=== PATIENT | female | born 1950 | race Caucasian/White ===

== ENCOUNTER → 2017-06-12 | Outpatient (CLI) | payer MEDICARE, OTHER ==
[~2017-06-12] MED LIST: ALBU8.5H IH; ASPI81TA94 PO; AZEL205.2 NS; BUDE10.25 IH; CARV6.2574 PO; CHOL100052 PO; CLOP75TA43 PO; CYAN1TAB68 PO; CYC10 PO; CYCL-277 PO; DUL20 PO; FLUT10SP; HYDR25CA83 PO; LANS30CA70 PO; LEVO-3 PO; LEVOTHYROXINE; LOR5/325 PO; LORA-788 PO; LOSA50TA72 PO; METH500T PO; METHO500 PO; MONT10TA PO; MULT-1335 PO; NAP500 PO; NAPR-723 PO; NIT3 SL; OXYC-763 PO; PANT40TA65 PO; SERT-1 PO; THYROID; ZOLP-350 PO
== END ==
LOC: SPU 08:16
PROVIDERS: ATTEND Nurse Practitioner Family
DX: E03.9 Hypothyroidism, unspecified (principal); E78.5 Hyperlipidemia, unspecified; Z79.899 Other long term (current) drug therapy
CPT/HCPCS: 82465; 83718; 84478

== ENCOUNTER 2017-06-14 08:51 | Outpatient (RCR) | payer MEDICARE, OTHER ==
[2017-06-12 08:16] VITALS: BP 169/98
[2017-06-12 08:52] LABS: PLATELET COUNT, AUTOMATED 299 K/uL (150-450)
[2017-06-14 08:59] VITALS: BP 177/96
--- NOTE | 2017-06-14 09:42 | ONC Progress Note - NP.Halsey ---
Patient History Date of Service Jun 14, 2017 Reason For Visit/HPI Patient is seen in the clinic today for follow up of her iron deficiency anemia. Patient has a history of gastric bypass surgery, revision of bypass, and a mass removed to decrease her stomach even further. Patient is seen every 6 months to monitor her symptoms and ferritin level. Today she reports that she has increased fatigue which she experiences almost daily around 1pm. She tries to remain active but often has no further energy to complete her day. Labs reviewed today with patient. Review of normal screening recommendations completed today. Patient reports that she does a self breast exam occasionally but she has not completed a mammogram. She is encouraged to discuss this with her primary provider. She reports a colonoscopy which was normal. Problem List (1) Iron (Fe) deficiency anemia (2) History of gastric bypass (3) Hx of cholecystectomy (4) History of shoulder surgery (5) (6) Adopted child Oncology History 1. 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 The patient did not respond to oral iron supplementation. The patient received the Ferrlecit for eight weekly doses and ferritin increased it from 7 to 32. She was then seen in follow up and her ferritin was decreased to 17. She received Injectafer 750mg IV for two doses a week apart in October of 2014. Patient was not seen until she had insurance in 2016 2. Hypothyroidism on thyroid supplement. 3. Coronary artery disease, status post stent placement. Psychosocial History Social History The patient is . She has 2 sons, one is disabled and the other is adopted and currently in fpc for drug use. 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 Denies any abuse of alcohol, tobacco or drugs. Smoking History: No Smoking Status: Never Smoker Exposure to Second Hand Smoke?: No Medications and Allergies Reported Medications Cholecalciferol (Vitamin D3) (VITAMIN D) 1,000 Unit Tablet, 1000 UNIT PO QDAY 03/27/14 Cyanocobalamin/Folic Acid (VITAMIN U05-KUPKO ACID TABLET) 1 Each Tablet, 1 EACH PO QDAY 03/27/14 Multivitamin With Minerals (MULTIPLE VITAMIN) 1 Each Tablet, 1 EACH PO QDAY 03/27/14 Nitroglycerin (NITROSTAT) 0.3 Mg Subl, 0.3 MG SL Q5MIN 03/27/14 Fluticasone Furoate (VERAMYST) 10 Gm [place], 1 SPRAY NA QDAY, SPRAY 03/27/14 Azelastine Hcl (ASTEPRO) 205.5 Mcg/0.137 Ml [place].pump, 205.5 MCG NS BID 03/27/14 Sertraline Hcl (ZOLOFT) 50 Mg Tablet, 2 TAB PO QDAY TAKE TWO TABLETS BY MOUTH EVERY DAY 03/25/14 Aspirin (ASPIRIN) 81 Mg Tab.chew, 81 MG PO QDAY, TAB.CHEW TAKE 1 TABLET BY MOUTH EVERY DAY 03/25/14 Levothyroxine Sodium (LEVOTHYROXINE SODIUM) 100 Mcg Tablet, 100 MCG PO QDAY 03/25/14 [Levothyroxine] No Conflict Check 12/07/12 Allergies: Coded Allergies: grapefruit (Verified Allergy, Mild, 12/07/12) codeine (Verified Allergy, Unknown, 03/25/14) Uncoded Allergies: JACQUELINE TREES (Allergy, Mild, 05/08/07) Review of System/Physical Exam Review of Systems All Systems Reviewed/Normal: Yes, Except as Noted Hematologic: Positive for Fatigue Physical Exam Vital Signs Temperature: 97.3 Pulse: 103 BP Systolic: 177 BP Diastolic: 96 Respiratory Rate: 16 O2 SAT: 94 O2 Delivery: Room Air Height (inches) 4.50 Weight lb: 274 Weight oz: 8.0 Weight Kg ([place]): [phone] Pain: 4 ECOG Score: 0 General: Stable, Well Developed, Well Nourished, Not In Acute Distress Heart: Regular Rate, Regular Rhythm, No Gallops, No Murmurs Psychiatric: Mood appears normal, Affect appears normal Skin: No Skin Rashes, No Bruising, No Purpura Other The rest of the exam was deferred to discuss lab results and review screening indications. Diagnostic Studies Diagnostic Studies Laboratory Laboratory Tests 06/12/17 08:16 Laboratory Tests 06/12/17 08:16: White Blood Count 9.1, Red Blood Count 5.62, Hemoglobin 15.4, Hematocrit 46.2, Mean Corpuscular Volume 82.2, Mean Corpuscular Hemoglobin 27.5, Mean Corpuscular Hemoglobin Concent 33.4, Red Cell Distribution Width 14.1, Platelet Count 299, Mean Platelet Volume 8.0, Neutrophils (%) (Auto) 55.6, Lymphocytes (% ) (Auto) 35.6, Monocytes (%) (Auto) 5.1, Eosinophils (%) (Auto) 2.6, Basophils ( %) (Auto) 1.1, Nucleated RBC Relative Count (auto) 0.1, Neutrophils # (Auto) 5.1 , Lymphocytes # (Auto) 3.2, Monocytes # (Auto) 0.5, Eosinophils # (Auto) 0.2, Basophils # (Auto) 0.1, Nucleated RBC Absolute Count (auto) 0.01, Sodium Level 138, Potassium Level 4.3, Chloride Level 105, Carbon Dioxide Level 21, Blood Urea Nitrogen 11, Creatinine 0.80, Glomerular Filtration Rate Calc > 60.0, Random Glucose 106, Calcium Level 9.3, Iron Level 72, Total Iron Binding Capacity 213, Percent Iron Saturation 33.8, Ferritin 17, Total Bilirubin 0.5, Aspartate Amino Transf (AST/SGOT) 23, Alanine Aminotransferase (ALT/SGPT) 29, Alkaline Phosphatase 107, Total Protein 7.1, Albumin 4.0, Thyroid Stimulating Hormone (TSH) 0.71 Assessment and Plan Assessment & Plan 1. 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 The patient did not respond to oral iron supplementation. The patient received the Ferrlecit for eight weekly doses and ferritin increased it from 7 to 32. Her ferritin then decreased to 17 and she received two infusions of Injectafer 750 mg intravenously for two doses a week apart in October of 2014. She was to follow in 6 months with repeat labs but had no insurance so was not seen until 2016 with a ferritin of 20. She had fatigue at that time but felt is was not interfering with her day. Today ferritin is 17 and she feels more fatigued. I will transfuse with injectafer 750,g IV for two doses a week apart and see her in 6 months with repeat CBC, CMP, iron studies and ferritin. She agrees with this plan of care. In addition she will discuss completing a mammogram with her primary provider Ivelisse Miles NP. 2. Hypothyroidism on thyroid supplement. 3. Coronary artery disease, status post stent placement. I personally spent a total of 20 minutes. Of that 20 minutes was counseling/ coordination of patient's care. See my note above for details. ROSE CASANOVA ECHOCARDIOGRAPH TECH-BC, ONC Jun 14, 2017 09:42
== END 2017-07-26 09:00 | disposition home or self-care (01) ==
LOC: ONC 08:51
PROVIDERS: ATTEND Nurse Practitioner Family
DX: D50.9 Iron deficiency anemia, unspecified (principal); E03.9 Hypothyroidism, unspecified; I25.10 Atherosclerotic heart disease of native coronary artery without angina pectoris; R53.83 Other fatigue; Z79.899 Other long term (current) drug therapy; Z79.82 Long term (current) use of aspirin
CPT/HCPCS: 36415; 82728; 83540; 83550; 84443; 85025; G0463; 82040; 82247; 82310; 82374; 82435; 82465; 82565; 82947; 83718; 84075; 84132; 84155; 84295; 84450; 84460; 84478; 84520; 99212